=== PATIENT | male | born 1980 | race Two or more races ===

== ENCOUNTER 2017-11-11 20:44 | Inpatient (IN) | payer SELFPAY ==
[~2017-11-11] VITALS: Ht 180.3 cm; Wt 116.1 kg
[2017-11-11] MEDS ORDERED: ONDANSETRON HCL 4MG/2ML VIAL IV STA (20:57)
[2017-11-11] MEDS ORDERED: ONDANSETRON 4MG ODT PO STA (20:57)
[2017-11-11] MEDS ORDERED: MORPHINE SULFATE 4 MG/ML CPJ (NOT FOR IM USE) IV ONE (21:15)
[2017-11-11] MEDS ORDERED: KETOROLAC 30MG/ML VIAL IV ONE (21:30)
[2017-11-11 21:50] LABS: CHLORIDE 105 mEq/L (98-107)
[2017-11-11 21:51] LABS: BASOPHILS % 0.2 % (0.0-2.0); EOSINOPHILS % 1.3 % (0.0-5.0); HEMATOCRIT. 44.4 % (42.0-52.0); HEMOGLOBIN. 15.6 g/dL (14.0-18.0); LYMPHOCYTES % 19.3 % (20.0-50.0); MEAN CORPUSCULAR HEMOGLOBIN 30.2 pg (28.0-32.0); MEAN CORPUSCULAR VOLUME 86.1 fL (80.0-94.0); MEAN PLATELET VOLUME 9.8 fl (7.4-10.4); MONOCYTES % 7.9 % (2.0-8.0); NEUTROPHILS % 71.3 % (40.0-76.0); PLATELET 219 x1000/uL (130-400); PROTHROMBIN TIME 10.3 sec (9.1-11.1); RED BLOOD CELL COUNT 5.16 mill/uL (4.7-6.1); RED CELL DISTRIBUTION WIDTH 13.1 % (11.6-14.6)
[2017-11-11] MEDS ORDERED: SODIUM CHLORIDE 0.9% 1,000 ML IV ONE (22:15)
[2017-11-11] MEDS ORDERED: PIPERACILLIN/TAZ 3.375G PREMIX 50 ML IV ONE (22:30)
[2017-11-11 22:49] LABS: AMYLASE 1216 IU/L (25-115)
[2017-11-11] MEDS ORDERED: ONDANSETRON HCL 4MG/2ML VIAL IV PRN (23:00)
[2017-11-11] MEDS ORDERED: IPRATROPIUM/ALBUTEROL 0.5-3(2.5)MG/3ML NEB INH PRN (23:00)
[2017-11-11] MEDS ORDERED: MORPHINE SULFATE 4 MG/ML CPJ (NOT FOR IM USE) IV PRN (23:00)
[2017-11-12] VITALS (7 sets, daily range): BP systolic 108–127; BP diastolic 64–87
[2017-11-12] MEDS ORDERED: POTASSIUM CHLORIDE 20MEQ TABLET SR PO ONE (00:15)
[2017-11-12] MEDS: SODIUM CHLORIDE 0.9% 1,000 ML IV SCH (01:56)
[2017-11-12] MEDS: ONDANSETRON 4MG ODT PO PRN ×2 (02:01→09:17)
[2017-11-12 07:24] LABS: BASOPHILS % 0.3 % (0.0-2.0); EOSINOPHILS % 0.1 % (0.0-5.0); HEMATOCRIT. 41.1 % (42.0-52.0); HEMOGLOBIN. 14.3 g/dL (14.0-18.0); MEAN CORPUSCULAR HEMOGLOBIN 30.3 pg (28.0-32.0); MEAN PLATELET VOLUME 10.3 fl (7.4-10.4); MONOCYTES % 7.5 % (2.0-8.0); NEUTROPHILS % 79.1 % (40.0-76.0); PLATELET 203 x1000/uL (130-400); RED BLOOD CELL COUNT 4.72 mill/uL (4.7-6.1); RED CELL DISTRIBUTION WIDTH 13.2 % (11.6-14.6)
[2017-11-12 07:28] LABS: CHLORIDE 107 mEq/L (98-107)
[2017-11-12 07:53] LABS: CREATINE KINASE 163 IU/L (39-308); CREATINE KINASE MB FRACTION < 1.0 ng/mL (0.5-3.6); LDL CHOLESTEROL 90 mg/dL (5-100)
[2017-11-12 07:55] LABS: HDL CHOLESTEROL 34 mg/dL (40-59)
[2017-11-12] MEDS ORDERED: ENOXAPARIN 40MG/0.4ML SYR SUBCUT SCH (09:00)
[2017-11-12] MEDS: DEXT 5%/0.45% NACL KCL 10MEQ/L 1,000 ML IV SCH (12:18)
[2017-11-12 15:58] LABS: CREATINE KINASE 162 IU/L (39-308)
[2017-11-12 15:59] LABS: CREATINE KINASE MB FRACTION < 1.0 ng/mL (0.5-3.6)
[2017-11-12] MEDS: ENOXAPARIN 30MG/0.3ML SYR SUBCUT SCH (20:31)
[2017-11-13] VITALS: BP 128/68
[2017-11-13] MEDS: DEXT 5%/0.45% NACL KCL 10MEQ/L 1,000 ML IV SCH ×2 (00:56→16:07)
[2017-11-13 04:00] VITALS: BP 120/82
[2017-11-13 06:56] LABS: BASOPHILS % 0.4 % (0.0-2.0); EOSINOPHILS % 3.6 % (0.0-5.0); HEMATOCRIT. 40.4 % (42.0-52.0); LYMPHOCYTES % 30.8 % (20.0-50.0); MEAN CORPUSCULAR HEMOGLOBIN 30.4 pg (28.0-32.0); MEAN CORPUSCULAR VOLUME 87.4 fL (80.0-94.0); MEAN PLATELET VOLUME 10.1 fl (7.4-10.4); MONOCYTES % 6.7 % (2.0-8.0); NEUTROPHILS % 58.5 % (40.0-76.0); PLATELET 179 x1000/uL (130-400); RED BLOOD CELL COUNT 4.62 mill/uL (4.7-6.1); RED CELL DISTRIBUTION WIDTH 13.2 % (11.6-14.6)
[2017-11-13 07:57] VITALS: BP 100/61
[2017-11-13 08:17] LABS: CHLORIDE 105 mEq/L (98-107)
[2017-11-13 08:27] LABS: PHOSPHORUS 2.3 mg/dL (2.5-4.9)
[2017-11-13] MEDS: ENOXAPARIN 30MG/0.3ML SYR SUBCUT SCH ×2 (08:32→22:32)
[2017-11-13 12:00] VITALS: BP 107/71
[2017-11-13] MEDS ORDERED: POTASSIUM CHLORIDE 20MEQ TABLET SR PO NR (14:00)
[2017-11-13] MEDS ORDERED: KETOROLAC 15MG/ML VIAL IV PRN ×2 (14:00)
[2017-11-13 16:00] VITALS: BP 118/86
[2017-11-13 20:00] VITALS: BP 115/82
[2017-11-14] VITALS: BP 102/63
[2017-11-14] MEDS: DEXT 5%/0.45% NACL KCL 10MEQ/L 1,000 ML IV SCH ×2 (05:53→23:20)
[2017-11-14 06:53] LABS: CHLORIDE 105 mEq/L (98-107)
[2017-11-14 06:57] LABS: AMYLASE 55 IU/L (25-115); BASOPHILS % 0.6 % (0.0-2.0); EOSINOPHILS % 4.3 % (0.0-5.0); HEMATOCRIT. 41.2 % (42.0-52.0); HEMOGLOBIN. 14.4 g/dL (14.0-18.0); MEAN CORPUSCULAR HEMOGLOBIN 30.8 pg (28.0-32.0); MEAN PLATELET VOLUME 9.9 fl (7.4-10.4); MONOCYTES % 6.3 % (2.0-8.0); NEUTROPHILS % 55.8 % (40.0-76.0); PLATELET 192 x1000/uL (130-400); RED BLOOD CELL COUNT 4.68 mill/uL (4.7-6.1); RED CELL DISTRIBUTION WIDTH 13.1 % (11.6-14.6)
[2017-11-14 07:01] LABS: PHOSPHORUS 2.8 mg/dL (2.5-4.9)
[2017-11-14 08:00] VITALS: BP 117/77
[2017-11-14] MEDS: ENOXAPARIN 30MG/0.3ML SYR SUBCUT SCH ×2 (09:33→23:21)
[2017-11-14 12:00] VITALS: BP 120/75
[2017-11-14 16:00] VITALS: BP 120/72
[2017-11-14] MEDS ORDERED: KETOROLAC 10MG TABLET PO PRN (16:03)
[2017-11-14] MEDS ORDERED: PANTOPRAZOLE SODIUM 40 MG/VIAL IV SCH (17:00)
[2017-11-14 20:00] VITALS: BP 133/86
[2017-11-14] MEDS: SODIUM CHLORIDE 0.9% 1,000 ML IV SCH ×2 (23:20→23:22)
[2017-11-15] VITALS: BP 124/76
[2017-11-15] MEDS: DEXT 5%/0.45% NACL KCL 10MEQ/L 1,000 ML IV SCH (03:30)
[2017-11-15 04:00] VITALS: BP 122/72
[2017-11-15 08:00] VITALS: BP 114/87
[2017-11-15] MEDS: ENOXAPARIN 30MG/0.3ML SYR SUBCUT SCH (09:00)
[2017-11-15 10:30] VITALS: BP 114/87
[2017-11-15 10:51] VITALS: BP 114/87
== END 2017-11-15 11:52 | disposition home or self-care (01) | DRG 282 ==
LOC: ER 20:44 → 6EST 22:42 → EDBEDREQ 22:43 → EDBEDREQTM 22:43 → ENRESERV 23:27
PROVIDERS: ADMIT Internal Medicine; ATTEND Internal Medicine
DX: K85.10 Biliary acute pancreatitis without necrosis or infection (principal); K76.0 Fatty (change of) liver, not elsewhere classified; E87.6 Hypokalemia; K80.20 Calculus of gallbladder without cholecystitis without obstruction; F17.210 Nicotine dependence, cigarettes, uncomplicated; K57.30 Diverticulosis of large intestine without perforation or abscess without bleeding
CPT/HCPCS: 36415; 74176; 76705; 78227; 80048; 80053; 80061; 80076; 82150; 82248; 82550; 82553; 83036; 83690; 83735; 84100; 84443; 84484; 85025; 85610; 87040; 93970; 96365; 96375; 99291; A9537; G0482; J1650; J1885; J2270; J2405; J2543; J7030; Q0162

== ENCOUNTER 2017-11-17 17:05 | Emergency (ER) | payer SELFPAY ==
[~2017-11-17] VITALS: Ht 172.7 cm; Wt 80.0 kg
[2017-11-17] MEDS ORDERED: SODIUM CHLORIDE 0.9% 1,000 ML IV ONE ×2 (17:50→20:30)
[2017-11-17] MEDS ORDERED: KETOROLAC 30MG/ML VIAL IV STA (17:50)
[2017-11-17] MEDS ORDERED: LORAZEPAM 2MG/ML CPJ IV ONE (18:00)
[2017-11-17 19:18] LABS: BASOPHILS % 0.3 % (0.0-2.0); EOSINOPHILS % 0.3 % (0.0-5.0); HEMOGLOBIN. 15.9 g/dL (14.0-18.0); LYMPHOCYTES % 15.8 % (20.0-50.0); MEAN CORPUSCULAR VOLUME 87.2 fL (80.0-94.0); MEAN PLATELET VOLUME 9.5 fl (7.4-10.4); NEUTROPHILS % 76.6 % (40.0-76.0); PLATELET 233 x1000/uL (130-400); RED BLOOD CELL COUNT 5.28 mill/uL (4.7-6.1); RED CELL DISTRIBUTION WIDTH 13.2 % (11.6-14.6)
[2017-11-17 19:26] LABS: INR 1.1; PROTHROMBIN TIME 10.9 sec (9.1-11.1)
[2017-11-17 19:29] LABS: CHLORIDE 102 mEq/L (98-107)
[2017-11-17] MEDS ORDERED: FAMOTIDINE 20MG/2ML VIAL IV STA (20:20)
[2017-11-17] MEDS ORDERED: MORPHINE SULFATE 4 MG/ML CPJ (NOT FOR IM USE) IV STA (20:20)
[2017-11-17] MEDS ORDERED: ONDANSETRON HCL 4MG/2ML VIAL IV STA (20:20)
[2017-11-17] MEDS ORDERED: MAGNESIUM/ALUMINUM HYDROXIDE/SIMETHICONE 30ML UDC PO STA (20:20)
[2017-11-17 21:57] LABS: CLARITY URINE CLOUDY (CLEAR); COLOR URINE DARK YELLOW (YELLOW); KETONES URINE TRACE (NEGATIVE); LEUKOCYTE ESTERASE URINE NEGATIVE (NEGATIVE); NITRITE URINE NEGATIVE (NEGATIVE); OCCULT BLOOD URINE NEGATIVE (NEGATIVE); PROTEIN URINE 1+ (NEGATIVE); SPECIFIC GRAVITY URINE 1.032 (1.005-1.030)
[2017-11-17 22:20] VITALS: BP 117/61
== END 2017-11-17 22:38 | disposition home or self-care (01) ==
LOC: ER 17:05
DX: R10.32 Left lower quadrant pain (principal); R10.31 Right lower quadrant pain; M62.838 Other muscle spasm; R79.89 Other specified abnormal findings of blood chemistry; F12.10 Cannabis abuse, uncomplicated
CPT/HCPCS: 36415; 80053; 81003; 83690; 85025; 85610; 96361; 96374; 96375; 99285; J1885; J2060; J2270; J2405; J3490; J7030; Z7610

== ENCOUNTER 2019-03-10 21:06 | Emergency (ER) | payer MEDICAID ==
[~2019-03-10] VITALS: Ht 182.9 cm; Wt 113.5 kg
[2019-03-10] MEDS ORDERED: SODIUM CHLORIDE 0.9% 1,000 ML IV ONE (22:16)
[2019-03-10] MEDS ORDERED: MORPHINE SULFATE 4 MG/ML CPJ (NOT FOR IM USE) IV STA (22:16)
[2019-03-10 23:04] LABS: BASOPHILS % 0.5 % (0.0-2.0); EOSINOPHILS % 2.1 % (0.0-5.0); HEMATOCRIT. 44.9 % (42.0-52.0); HEMOGLOBIN. 15.6 g/dL (14.0-18.0); LYMPHOCYTES % 34.3 % (20.0-50.0); MEAN CORPUSCULAR VOLUME 86.1 fL (80.0-94.0); MEAN PLATELET VOLUME 9.7 fl (7.4-10.4); MONOCYTES % 6.1 % (2.0-8.0); PLATELET 216 x1000/uL (130-400); RED BLOOD CELL COUNT 5.22 mill/uL (4.7-6.1); RED CELL DISTRIBUTION WIDTH 13.2 % (11.6-14.6)
[2019-03-10 23:14] LABS: CHLORIDE 104 mEq/L (98-107)
[2019-03-11 00:51] VITALS: BP 116/78
== END 2019-03-11 01:13 | disposition home or self-care (01) ==
LOC: ER 21:06
DX: K62.5 Hemorrhage of anus and rectum (principal); R10.9 Unspecified abdominal pain
CPT/HCPCS: 36415; 74176; 80053; 83690; 85025; 85610; 96374; 99284; J2270; J7030; Z7610

== ENCOUNTER 2023-03-30 12:45 | Emergency (ER) | payer MEDICAID ==
[~2023-03-30] VITALS: Ht 182.9 cm; Wt 117.9 kg
[2023-03-30 12:54] VITALS: O2SAT 97
[2023-03-30] MEDS ORDERED: KETOROLAC 60MG/2ML VIAL IM ONE (13:30)
[2023-03-30 14:01] LABS: BASOPHILS % 0.4 % (0.0-2.0); EOSINOPHILS % 1.7 % (0.0-5.0); HEMATOCRIT. 44.7 % (42.0-52.0); HEMOGLOBIN. 15.2 g/dL (14.0-18.0); LYMPHOCYTES % 28.7 % (20.0-50.0); MEAN CORPUSCULAR HEMOGLOBIN 30.6 pg (28.0-32.0); MEAN CORPUSCULAR HGB CONC 33.9 g/dL (31.0-37.0); MEAN CORPUSCULAR VOLUME 90.1 fL (80.0-94.0); MEAN PLATELET VOLUME 9.8 fl (7.4-10.4); MONOCYTES % 5.5 % (2.0-8.0); NEUTROPHILS % 63.7 % (40.0-76.0); PLATELET 212 x1000/uL (130-400); RED BLOOD CELL COUNT 4.96 mill/uL (4.7-6.1); WHITE BLOOD COUNT 7.2 x1000/uL (4.5-11.0)
[2023-03-30 14:23] LABS: ALANINE AMINOTRANSFERASE 74 IU/L (10-49); ALBUMIN 4.5 g/dL (3.2-4.8); ASPARTATE AMINOTRANSFERASE 41 IU/L (<34); BILIRUBIN TOTAL 1.6 mg/dL (0.1-1.0); CALCIUM 9.4 mg/dL (8.7-10.4); CARBON DIOXIDE 23 mEq/L (21-32); CHLORIDE 105 mEq/L (98-107); GLUCOSE 91 mg/dL (70-105); POTASSIUM 3.9 mEq/L (3.5-5.1); PROTEIN TOTAL 8.1 g/dL (6.0-8.3); SODIUM 136 mEq/L (136-145); UREA NITROGEN BLOOD 20 mg/dL (9-23)
[2023-03-30 14:51] LABS: CLARITY URINE CLEAR (CLEAR); COLOR URINE YELLOW (YELLOW); GLUCOSE URINE NEGATIVE (NEGATIVE); KETONES URINE NEGATIVE (NEGATIVE); LEUKOCYTE ESTERASE URINE NEGATIVE (NEGATIVE); NITRITE URINE NEGATIVE (NEGATIVE); OCCULT BLOOD URINE NEGATIVE (NEGATIVE); PH URINE 5.5 (4.5-8.0); PROTEIN URINE NEGATIVE (NEGATIVE)
[2023-03-30] MEDS ORDERED: KETOROLAC 60MG/2ML VIAL IM NR (16:45)
[2023-03-30] MEDS ORDERED: NAPR-681 PO (16:56)
[2023-03-30] MEDS ORDERED: CYCL5TAB PO (16:56)
[2023-03-30 17:07] VITALS: BP 126/82; PULSE 72; RESP 16; TEMP 98.2
== END 2023-03-30 17:09 | disposition home or self-care (01) ==
LOC: ER 13:25
DX: M79.651 Pain in right thigh (principal); K40.90 Unilateral inguinal hernia, without obstruction or gangrene, not specified as recurrent
CPT/HCPCS: 99285; 93971; 76857; 80053; 81003; 85025; 36415; 96372; J1885

== ENCOUNTER 2023-05-09 13:55 | Emergency (ER) | payer MEDICAID ==
[~2023-05-09] VITALS: Ht 177.8 cm; Wt 96.0 kg
[~2023-05-09 13:55] MED LIST: CYCL5TAB PO; NAPR-681 PO
[2023-05-09] MEDS: SODIUM CHLORIDE 0.9% 1,000 ML IV ONE (14:00)
[2023-05-09] MEDS: ONDANSETRON HCL 4MG/2ML INJ IV STA (14:00)
[2023-05-09 14:07] VITALS: O2SAT 98
[2023-05-09] MEDS: MORPHINE SULFATE 4 MG/ML CPJ (NOT FOR IM USE) IV STA (15:17)
[2023-05-09 15:18] LABS: BASOPHILS % 0.4 % (0.0-2.0); EOSINOPHILS % 0.2 % (0.0-5.0); HEMATOCRIT. 42.8 % (42.0-52.0); HEMOGLOBIN. 14.8 g/dL (14.0-18.0); LYMPHOCYTES % 20.1 % (20.0-50.0); MEAN CORPUSCULAR HEMOGLOBIN 30.7 pg (28.0-32.0); MEAN CORPUSCULAR HGB CONC 34.7 g/dL (31.0-37.0); MEAN CORPUSCULAR VOLUME 88.4 fL (80.0-94.0); MEAN PLATELET VOLUME 9.8 fl (7.4-10.4); MONOCYTES % 11.3 % (2.0-8.0); PLATELET 177 x1000/uL (130-400); RED BLOOD CELL COUNT 4.84 mill/uL (4.7-6.1); RED CELL DISTRIBUTION WIDTH 12.9 % (11.6-14.6)
[2023-05-09 15:26] LABS: PROTHROMBIN TIME 11.4 sec (9.6-11.0)
[2023-05-09 15:33] LABS: ALANINE AMINOTRANSFERASE 80 IU/L (10-49); ALBUMIN 4.6 g/dL (3.2-4.8); ASPARTATE AMINOTRANSFERASE 48 IU/L (<34); BILIRUBIN TOTAL 1.5 mg/dL (0.1-1.0); CALCIUM 8.9 mg/dL (8.7-10.4); CARBON DIOXIDE 26 mEq/L (21-32); CHLORIDE 102 mEq/L (98-107); CREATININE 1.2 mg/dL (0.6-1.3); GLUCOSE 93 mg/dL (70-105); POTASSIUM 3.4 mEq/L (3.5-5.1); PROTEIN TOTAL 7.6 g/dL (6.0-8.3); SODIUM 135 mEq/L (136-145); UREA NITROGEN BLOOD 11 mg/dL (9-23)
[2023-05-09 15:46] LABS: TROPONIN I HIGH SENSITIVITY 112 ng/L (3.0-53)
[2023-05-09] MEDS ORDERED: CEFTRIAXONE 1GM PREMIX 50 ML IV ONE (16:00)
[2023-05-09] MEDS: PANTOPRAZOLE SODIUM 40 MG/VIAL IV ONE (16:32)
[2023-05-09] MEDS: CEFTRIAXONE 1GM PREMIX 50 ML IV NR (17:14)
[2023-05-09 21:03] VITALS: TEMP 99.2
[2023-05-09] MEDS: MORPHINE SULFATE 4 MG/ML CPJ (NOT FOR IM USE) IV ONE (21:20)
[2023-05-09 21:29] LABS: TROPONIN I HIGH SENSITIVITY 82 ng/L (3.0-53)
[2023-05-09 23:18] VITALS: BP 132/78; PULSE 86; RESP 16
== END 2023-05-09 23:22 | disposition short-term general hospital (02) ==
LOC: ER 13:55
DX: I21.3 ST elevation (STEMI) myocardial infarction of unspecified site (principal); I49.9 Cardiac arrhythmia, unspecified
CPT/HCPCS: 80053; 80320; 83605; 83690; 85025; 85610; 86850; 86900; 86901; 84484; 36415; 71045; 74176; 93005; 96367; 96361; 96365; 96375; 96376; 99291; J0696; J2405; C9113; J2270; J7030; Z7610; G0480